=== PATIENT | male | born 1995 | race Caucasian/White ===

== ENCOUNTER 2017-06-24 15:30 | Emergency (ER) | payer SELFPAY ==
[~2017-06-24] VITALS: Ht 172.7 cm; Wt 66.0 kg
[~2017-06-24 15:30] MED LIST: PROZ20CA11 PO
[2017-06-24 15:32] VITALS: BP 123/70; PULSE 70; RESP 20; TEMP 97.7; O2SAT 98
--- NOTE | 2017-06-24 16:34 | PD ---
HPI Chief Complaint: Cold / Flu Symptoms Time Seen by Provider: 16:26 Travel History International Travel<30 days: No Contact w/Intl Traveler<30days: No Traveled to known affect area: No History of Present Illness HPI This is a 22-year-old male who presents to the emergency department with 2 days of cough, nasal congestion, fevers, chills, body aches and some vomiting. He says the only reason he is here is because he needs a note for work. He says his boss scheduled him to work till midnight and then come back again at 6 AM and he couldn't do it. He says his whole house is sick. He says he feels like he is getting better and he doesn't want any medications but he really needs a note for work. PFSH Past Medical History Medical History: Denies Significant Hx ADHD: No Depression: Yes Cancer: No Cardiovascular Problems: No Diabetes: No Diminished Hearing: No Psychiatric: Yes (Hx Depression) Migraines: No Seizures: No Thyroid Disease: No Ulcer: No Social History Alcohol Use: Yes (1.5beers today per pt; States occassional drinking.) Tobacco Use: No Substance Use: Yes (smokes weed everyday) Allergies-Medications (Allergen,Severity, Reaction): Coded Allergies: No Known Allergies (Verified , 06/24/17) Reported Meds & Prescriptions Reported Meds & Active Scripts Active Review of Systems General / Constitutional: Positive: Fever, Chills Respiratory: Positive: Cough Physical Exam Narrative GENERAL: Well-appearing, no acute distress, nontoxic SKIN: Warm and dry. HEAD: Atraumatic. Normocephalic. ENT: Nasal congestion. MUSCULOSKELETAL: No obvious deformities. NEUROLOGICAL: Awake and alert. No obvious cranial nerve deficits. Motor grossly within normal limits. PSYCHIATRIC: Appropriate mood and affect; insight and judgment normal. Data Data Last Documented VS Vital Signs Date Time Temp Pulse Resp B/P Pulse Ox O2 Delivery O2 Flow Rate FiO2 06/24/17 15:32 97.7 70 20 123/70 98 Room Air MDM Medical Decision Making Medical Screen Exam Complete: Yes Emergency Medical Condition: Yes Differential Diagnosis Viral upper respiratory infection, influenza, pneumonia Narrative Course This is a very well-appearing 22-year-old male who presents to the emergency department with flulike symptoms. His vital signs are all reassuring and his exam is unremarkable. Patient will be discharged with a note for work. Diagnosis Primary Impression: Viral syndrome Patient Instructions: General Instructions Departure Forms: Tests/Procedures, Work Release Enter return to work date: Jun 26, 2017 Special Instructions: Excuse Mr. Cagle from work 06/24 and 06/25 Additional Instructions: If you develop severe chest pain, shortness of breath, sweating, lightheadedness , dizziness or difficulty breathing return to the emergency department immediately. Followup with your primary care physician in 2-3 days if your symptoms are not resolved. Disposition: 01 DISCHARGE HOME Condition: Stable Celeste Villarreal MD Jun 24, 2017 16:33
[2017-06-24 16:35] VITALS: BP 116/69; PULSE 63; RESP 18; TEMP 97.8; O2SAT 97
== END 2017-06-24 17:07 | disposition home or self-care (01) ==
LOC: NEPD 15:30
DX: B34.9 Viral infection, unspecified (principal); F32.9 Major depressive disorder, single episode, unspecified; R11.10 Vomiting, unspecified
CPT/HCPCS: 99281